=== PATIENT | male | born 1995 | race American Indian/Alaskan Native ===

== ENCOUNTER 2021-10-01 21:53 | Emergency (ER) | payer BC ==
[2021-10-01 22:09] VITALS: BP 145/87
--- NOTE | 2021-10-01 22:11 | Emergency Department Report ---
ED Laceration HPI - HPI Stated Complaint: LEFT FINGER LACERATION Time Seen by Provider: 10/01/21 22:08 Occurred When: Today Location: Upper Extremity (base of left thumb at palmar side) Severity: mild Tetanus Status: Not up to Date Laceration Symptoms: Yes Pain, No Foreign Body Sensation, No Numbness, No Weakness ED Review of Systems ROS: Stated complaint: LEFT FINGER LACERATION Other details as noted in HPI Laceration Physical Exam - Exam General: Vital signs noted. No distress. Alert and acting appropriately. ED Course Vital Signs 10/01/21 22:03 Temperature 98.7 F Pulse Rate 94 H Respiratory 18 Rate Blood Pressure 145/87 O2 Sat by Pulse 94 Oximetry Critical care attestation.: If time is entered above; I have spent that time in minutes in the direct care of this critically ill patient, excluding procedure time. ED Disposition Condition: Stable
[2021-10-01] MEDS ORDERED: LIDOCAINE (2%) 20 MG/1 ML VIAL 20 ML MDV INFILTRATI ONE (23:08)
[2021-10-01] MEDS ORDERED: TETANUS,DIPH,PERTUSS(ACELL) VACCINE 0.5 ML SYRINGE IM ONE (23:15)
== END 2021-10-02 00:30 | disposition left against medical advice (07) ==
LOC: ED 21:53
DX: S61.219A Laceration without foreign body of unspecified finger without damage to nail, initial encounter (principal); X58.XXXA Exposure to other specified factors, initial encounter; Y93.89 Activity, other specified; Y92.89 Other specified places as the place of occurrence of the external cause; Y99.8 Other external cause status
CPT/HCPCS: 99281